=== PATIENT | female | born 1950 | race Caucasian/White ===

== ENCOUNTER 2016-12-19 14:30 | Emergency (ER) | payer OTHER ==
[2016-12-19 14:50] VITALS: BP 121/84; PULSE 90; TEMP 98.3; BMI 22.6
[2016-12-19] MEDS ORDERED: AMOX TR/POT CLAV 875MG/125MG TABLETS (FP) PO ONE (14:53)
[2016-12-19] MEDS ORDERED: AMOX TR/POT CLAV 875MG/125MG TABLETS (FP) ONE (14:55)
--- NOTE | 2016-12-19 15:12 | PDOC ---
History of Present Illness - General History Source: Patient Exam Limitations: No Limitations <Ana Barnhart - Last Filed: 12/19/16 15:06> - General History Source: Patient Exam Limitations: No Limitations - History of Present Illness Initial Comments: 12/19/16 15:12 Patient is a 66 year old female with no significant past medical history who presents to the ED with right ring finger swelling. Patient slammed her finger in the car door on 12/09. Patient was seen at an Urgent Care and her XRays revealed a fracture of middle phalanx where she was placed in a finger immobilizer. Patient has been packing for a trip and notes that the finger is more swollen and painful. The patient states that she feels that her finger is more swollen and warm. She notes that she has a small cut over the fracture that she has been putting bacitracin on. Patient has her XRAYs from the Urgent Care with her. She denies any fever or chills. She denies any erythema of the area or exudates from the wound. Patient's states that she her hand follow up is with Dr. Orantes in a week after she returns fro her trip. PCP - Dr. Pat <Tana Sr - Last Filed: 12/19/16 15:15> - General Chief Complaint: Bone Injury Stated Complaint: RIGHT RING FINGER FRACTURE FOLLOWUP Time Seen by Provider: 12/19/16 14:43 Past History - Past Medical History GI Disorders: Yes (IBS) Psychiatric Problems: Yes (ANXIETY) - Immunization History Immunization Up to Date: Yes - Psycho/Social/Smoking Cessation Hx Anxiety: No Suicidal Ideation: No Smoking History: Never smoked Hx Alcohol Use: No Drug/Substance Use Hx: No Substance Use Type: None <Ana Barnhart - Last Filed: 12/19/16 15:06> <Tana Sr - Last Filed: 12/19/16 15:15> - Past Medical History Allergies/Adverse Reactions: Allergies Allergy/AdvReac Type Severity Reaction Status Date / Time Sulfa (Sulfonamide Allergy Verified 12/19/16 14:42 Antibiotics) Home Medications: Ambulatory Orders Clonazepam [KlonoPIN] 0.5 mg PO HS 04/22/14 Amoxicillin/Potassium Clav [Augmentin 875-125 Tablet] 1 each PO BID #14 tablet 12/19/16 Bupropion HCl [Wellbutrin -] 100 mg PO BID 12/19/16 Cholecalciferol (Vitamin D3) [Vitamin D3] 5,000 unit PO DAILY 12/19/16 Fluoxetine HCl 40 mg PO DAILY 12/19/16 Linaclotide [Linzess] 145 mcg PO DAILY 12/19/16 Review of Systems - Review of Systems Able to Perform ROS?: Yes Comments:: 12/19/16 15:13 GENERAL/CONSTITUTIONAL: No fever or chills. No weakness. HEAD, EYES, EARS, NOSE AND THROAT: No change in vision. No ear pain or discharge. No sore throat. GASTROINTESTINAL: No nausea, vomiting, diarrhea or constipation. GENITOURINARY: No dysuria, frequency, or change in urination. CARDIOVASCULAR: No chest pain or shortness of breath. RESPIRATORY: No cough, wheezing, or hemoptysis. MUSCULOSKELETAL: +right ring finger swelling. No joint or muscle swelling or pain. No neck or back pain. SKIN: No rash NEUROLOGIC: No headache, vertigo, loss of consciousness, or change in strength/ sensation. ENDOCRINE: No increased thirst. No abnormal weight change. HEMATOLOGIC/LYMPHATIC: No anemia, easy bleeding, or history of blood clots. ALLERGIC/IMMUNOLOGIC: No hives or skin allergy. <Tana Sr - Last Filed: 12/19/16 15:15> *Physical Exam - Vital Signs Last Vital Signs Temp Pulse Resp BP Pulse Ox 98.3 F 90 16 121/84 97 12/19/16 14:37 12/19/16 14:37 12/19/16 14:37 12/19/16 14:37 12/19/16 14:37 <Ana Barnhart - Last Filed: 12/19/16 15:06> - Vital Signs Last Vital Signs Temp Pulse Resp BP Pulse Ox 98.3 F 90 16 121/84 97 12/19/16 14:37 12/19/16 14:37 12/19/16 14:37 12/19/16 14:37 12/19/16 14:37 - Physical Exam Comments: 12/19/16 15:14 GENERAL: Awake, alert, and fully oriented, in no acute distress HEAD: No signs of trauma EYES: PERRLA, EOMI, sclera anicteric, conjunctiva clear ENT: Auricles normal inspection, nares patent, Moist mucosa NECK: Normal ROM, supple, no lymphadenopathy, JVD, or masses LUNGS: Breath sounds equal, clear to auscultation bilaterally. No wheezes, and no crackles HEART: Regular rate and rhythm, normal S1 and S2, no murmurs, rubs or gallops ABDOMEN: Soft, nontender, normoactive bowel sounds. No guarding, no rebound. No masses EXTREMITIES: (+)Right upper extremity full ROM, right wrist full ROM (+)Right ring finger has a small medial abrasion the finger is swollen mild warmth no exudates distally neurovascularly intact. Normal range of motion. No clubbing or cyanosis. No cords, erythema. NEUROLOGICAL: Normal speech SKIN: Warm, Dry, normal turgor, no rashes noted. <Tana Sr - Last Filed: 12/19/16 15:15> ED Treatment Course - RADIOLOGY Radiology Studies Ordered: Category Date Time Status FINGER(S) RIGHT [RAD] Stat Radiology 12/19/16 14:52 Ordered - Medications Given in the ED: ED Medications Discontinued Medications Generic Name Dose Route Start Last Admin Trade Name Freq PRN Reason Stop Dose Admin Amoxicillin/Clavulanate Potassium 1 tab 12/19/16 14:53 12/19/16 14:57 Augmentin - 875mg Tablet PO 12/19/16 14:54 1 tab ONCE ONE Administration <Ana Barnhart - Last Filed: 12/19/16 15:06> - Medications Given in the ED: ED Medications Discontinued Medications Generic Name Dose Route Start Last Admin Trade Name Freq PRN Reason Stop Dose Admin Amoxicillin/Clavulanate Potassium 1 tab 12/19/16 14:53 12/19/16 14:57 Augmentin - 875mg Tablet PO 12/19/16 14:54 1 tab ONCE ONE Administration <Tana Sr - Last Filed: 12/19/16 15:15> Medical Decision Making - Medical Decision Making 12/19/16 15:06 66 yo F here with c/o right ring finger pain. pt sustained a fracture to the middle phalynx on december 09, when she smashed her finger in a car door. was seen at [facility] at that time, given finger immobilizer to immobilize DIP joint, and has following with dr ORANTES in one month ( hand specialist). yesterday she was packing for a trip, and today has pain and more swelling. was concerned her small abrasion medial side finger became infected. no f/c. no exudates from the wound. pain mild. pt has xray here wtih her from the urgent care for review. <Ana Barnhart - Last Filed: 12/19/16 15:06> *DC/Admit/Observation/Transfer - Discharge Dispostion Admit: No <Ana Barnhart - Last Filed: 12/19/16 15:06> - Attestations Scribe Attestion: 12/19/16 15:15 Documentation prepared by THOMAS Kumar, acting as medical technologist blood bank for Ana Barnhart MD. <Tana Sr - Last Filed: 12/19/16 15:15> Diagnosis at time of Disposition: Finger fracture, right - Discharge Dispostion Condition at time of disposition: Good - Prescriptions Prescriptions: Amoxicillin/Potassium Clav [Augmentin 875-125 Tablet] 1 each PO BID #14 tablet - Patient Instructions Printed Discharge Instructions: Finger Fracture Additional Instructions: wear finger splint until you follow up with your orthopedist. take augmentin twice daily x 7 days. soak finger in warm soapy water twice daily. when resting you should elevate finger to prevent swelling. return for worsening redness, fever or any concerns.
== END 2016-12-19 15:51 | disposition home or self-care (01) ==
LOC: FER 14:30
DX: S62.654A Nondisplaced fracture of middle phalanx of right ring finger, initial encounter for closed fracture (principal); W23.1XXA Caught, crushed, jammed, or pinched between stationary objects, initial encounter; Y93.89 Activity, other specified; Y92.9 Unspecified place or not applicable; F41.9 Anxiety disorder, unspecified; K58.9 Irritable bowel syndrome, unspecified
CPT/HCPCS: 73140-TC-RT; 99281-25

== ENCOUNTER 2022-11-29 08:51 | Emergency (ER) | payer OTHER ==
[2022-11-29 09:01] VITALS: BP 143/90; PULSE 89; RESP 20; TEMP 99; BMI 23.0
== END 2022-11-29 09:20 | disposition home or self-care (01) ==
LOC: FER 08:51
DX: L03.312 Cellulitis of back [any part except buttock and flank] (principal)
CPT/HCPCS: 99283-25